=== PATIENT | female | born 1970 | race Caucasian/White ===

== ENCOUNTER 2023-09-25 04:57 | Emergency (ER) | payer MEDICAID, OTHER ==
[~2023-09-25] VITALS: Ht 170.2 cm; Wt 65.0 kg
[2023-09-25 05:23] VITALS: PULSE 83; RESP 14; O2SAT 97
[2023-09-25] MEDS: KETOROLAC TROMETH 60MG/2ML VIAL IM ONE (07:15)
[2023-09-25] MEDS: MAALOX PLUS or MAALOX 30 ML PO ONE (07:15)
[2023-09-25] MEDS: LIDOCAINE VISCOUS 2% 15ML UD PO ONE (07:15)
[2023-09-25 08:00] VITALS: PULSE 69; RESP 16; TEMP 98.2; O2SAT 98
[2023-09-25 09:45] VITALS: BP 141/85; PULSE 71; RESP 18; O2SAT 98
== END 2023-09-25 09:46 | disposition home or self-care (01) ==
LOC: EDBD 04:57 → ER 04:57
DX: T18.128A Food in esophagus causing other injury, initial encounter (principal); F41.9 Anxiety disorder, unspecified; W44.F3XA Food entering into or through a natural orifice, initial encounter; Y93.89 Activity, other specified; Y92.89 Other specified places as the place of occurrence of the external cause; Y99.8 Other external cause status
CPT/HCPCS: 96372; 99285; J1885